=== PATIENT | male | born 1970 | race Caucasian/White ===

== ENCOUNTER 2017-02-26 12:21 | Day surgery (SDC) | payer OTHER ==
[~2017-02-26] VITALS: Ht 188 cm; Wt 120.2 kg
[~2017-02-26 12:21] MED LIST: FLEXERIL10 MG PO; HYDROCODON-ACE1 EACH; KEFLEX500 MG PO; LYRICA100 MG PO; MOTRIN800 MG PO; NAPROSYN500 MG PO; NAPROXEN SODIU550 MG; PERCOCET 5/31 TABLET PO; ULTRAM50 MG PO; VALIUM5 MG PO
== END 2017-02-26 14:26 | disposition home or self-care (01) ==
LOC: PAIN 12:21 → SDC 13:00 → PAIN 13:00
DX: M47.26 Other spondylosis with radiculopathy, lumbar region (principal); M51.16 Intervertebral disc disorders with radiculopathy, lumbar region; M54.5 Low back pain; G89.29 Other chronic pain; M25.78 Osteophyte, vertebrae
CPT/HCPCS: J1100; J2250; J3010

== ENCOUNTER 2017-03-26 13:18 | Day surgery (SDC) | payer OTHER ==
[~2017-03-26] VITALS: Ht 188 cm; Wt 127.9 kg
== END 2017-03-26 15:06 | disposition home or self-care (01) ==
LOC: PAIN 13:18 → SDC 15:00 → PAIN 15:06
DX: M47.26 Other spondylosis with radiculopathy, lumbar region (principal); M51.16 Intervertebral disc disorders with radiculopathy, lumbar region; M48.061 Spinal stenosis, lumbar region without neurogenic claudication; Z79.891 Long term (current) use of opiate analgesic
CPT/HCPCS: J1100; J2250; J3010

== ENCOUNTER 2017-04-08 05:39 | Emergency (ER) | payer OTHER ==
[~2017-04-08] VITALS: Ht 188 cm; Wt 123.6 kg
[2017-04-08 06:02] LABS: EOSINOPHIL (%) 1.8 % (0-5); EOSINOPHIL COUNT 0.1 K/uL (0-0.3); HEMATOCRIT 42.9 % (38.0-50.0); IMMATURE GRANULOCYTE (%) 0.5 % (0.0-0.7); INSTRUMENT ABS NEUTROPHIL CT 2.9 K/uL; LYMPHOCYTE COUNT 3.2 K/uL (1.0-2.8); MCH 28.7 PG (29.0-34.0); MCHC 34.5 G/DL (30.0-36.0); MCV 83.1 FL (86-99); MEAN PLAT.VOLUME 9.3 uM^3 (9.0-12.4); MONOCYTE (%) 5.3 % (3-12); MONOCYTE COUNT 0.4 K/uL (0-0.8); NEUTROPHIL COUNT 2.9 K/uL (1.8-6.4); PLATELET COUNT 230 K/uL (156-360); RBC DIS.WIDTH-CV 13.1 % (11.8-14.6); RBC DIS.WIDTH-SD 39.6 % (39-53); RED BLOOD COUNT 5.16 M/uL (4.00-5.50); WHITE BLOOD COUNT 6.6 K/uL (4.1-10.2)
[2017-04-08 06:14] LABS: CHLORIDE 108 mEq/L (99-109); POTASSIUM 4.2 mEq/L (3.7-5.4); SODIUM 142 mEq/L (136-147)
[2017-04-08 06:16] LABS: GLUCOSE 135 mg/dL (70-99)
[2017-04-08 06:17] LABS: ANION GAP 11 MEQ/L (2-14)
[2017-04-08 06:18] LABS: TOTAL BILIRUBIN 0.5 mg/dL (0.0-1.0)
[2017-04-08 06:20] LABS: ALKALINE PHOSPHATASE 94 IU/L (3-129); GFR ESTIMATE (CALCULATED) > 59 mL/min/
[2017-04-08 06:21] LABS: UREA NITROGEN (BUN) 17 mg/dL (9-23)
[2017-04-08 06:24] LABS: TROP-I INTERPRETATION NEGATIVE; TROPONIN-I 0.03 ng/mL (0.0-0.30)
[2017-04-08 09:02] LABS: TROP-I INTERPRETATION NEGATIVE; TROPONIN-I 0.02 ng/mL (0.0-0.30)
[2017-04-08 09:49] VITALS: BP 124/79
== END 2017-04-08 10:06 | disposition home or self-care (01) ==
LOC: EME 05:39
PROVIDERS: Emergency Medicine; Nurse Practitioner Family
DX: R07.9 Chest pain, unspecified (principal); Z82.49 Family history of ischemic heart disease and other diseases of the circulatory system
CPT/HCPCS: 71010; 80053; 84484; 85025; 93005; 99281; 99285; J1885

== ENCOUNTER 2017-04-23 12:18 | Day surgery (SDC) | payer OTHER ==
[~2017-04-23] VITALS: Ht 188 cm; Wt 127.9 kg
[~2017-04-23 12:18] MED LIST changes: +FLEXERIL5 MG PO; +PERCOCET 10/1 TABLET PO
== END 2017-04-23 14:30 | disposition home or self-care (01) ==
LOC: PAIN 12:18 → SDC 13:00 → PAIN 14:30
DX: M51.16 Intervertebral disc disorders with radiculopathy, lumbar region (principal); R20.0 Anesthesia of skin; M25.539 Pain in unspecified wrist; Z79.891 Long term (current) use of opiate analgesic
CPT/HCPCS: J1100; J2250; J3010

== ENCOUNTER → 2017-07-31 | Outpatient (CLI) | payer OTHER | END | disposition home or self-care (01) | LOC: RAD 13:38 | PROC: 3E0R3KZ Introduction of Other Diagnostic Substance into Spinal Canal, Percutaneous Approach (ICD-10-PCS; principal; 2017-07-31) | DX: M51.16 Intervertebral disc disorders with radiculopathy, lumbar region (principal); M48.07 Spinal stenosis, lumbosacral region; M25.78 Osteophyte, vertebrae; M53.86 Other specified dorsopathies, lumbar region; Z98.1 Arthrodesis status; G89.29 Other chronic pain; M51.36 Other intervertebral disc degeneration, lumbar region | CPT/HCPCS: 62304; 72114; 72132 ==

== ENCOUNTER 2017-10-16 12:50 | Day surgery (SDC) | payer OTHER ==
[~2017-10-16] VITALS: Ht 188 cm; Wt 125.6 kg
[2017-10-16 13:41] VITALS: BP 123/63
[2017-10-16 21:34] VITALS: BP 136/83
[2017-10-16 22:10] VITALS: BP 127/77
== END 2017-10-16 22:21 | disposition home or self-care (01) ==
LOC: SDC 12:50
PROC: 01NB0ZZ Release Lumbar Nerve, Open Approach (ICD-10-PCS; principal; 2017-10-16)
DX: M51.16 Intervertebral disc disorders with radiculopathy, lumbar region (principal); G89.29 Other chronic pain; M96.1 Postlaminectomy syndrome, not elsewhere classified; E66.9 Obesity, unspecified; Z68.35 Body mass index [BMI] 35.0-35.9, adult; Z98.1 Arthrodesis status
CPT/HCPCS: 72020; 76000; J0690; J1100; J1170; J1885; J2250; J2405; J2710; J2930; J3010; J7643; S0020

== ENCOUNTER 2017-12-22 17:52 | Emergency (ER) | payer OTHER ==
[~2017-12-22] VITALS: Ht 188 cm; Wt 123.4 kg
[2017-12-22] MEDS ORDERED: KEFLEX500 MG PO (19:39)
[2017-12-22 19:56] VITALS: BP 103/91
== END 2017-12-22 20:00 ==
LOC: EME 17:52
PROC: 2W3JX1Z Immobilization of Right Finger using Splint (ICD-10-PCS; principal; 2017-12-22)
PROC: 3E0234Z Introduction of Serum, Toxoid and Vaccine into Muscle, Percutaneous Approach (ICD-10-PCS; principal; 2017-12-22)
PROC: 0HQFXZZ Repair Right Hand Skin, External Approach (ICD-10-PCS; principal; 2017-12-22)
DX: S62.636B Displaced fracture of distal phalanx of right little finger, initial encounter for open fracture (principal); W23.0XXA Caught, crushed, jammed, or pinched between moving objects, initial encounter; Y92.149 Unspecified place in prison as the place of occurrence of the external cause; Z23 Encounter for immunization
CPT/HCPCS: 73140; 99281; 99284; J0696